=== PATIENT | male | born 1950 | race Caucasian/White ===

== ENCOUNTER 2019-12-03 05:53 | Day surgery (SDC) | payer MEDICARE, BC ==
[~2019-12-03] VITALS: Ht 170.2 cm; Wt 118.4 kg
[~2019-12-03 05:53] MED LIST: ASPI325; ASPI81CH PO; Hair, Skin & N1 EACH PO; LOSARTAN-HCTZ1 EACH PO; LOSHYD PO; METO100ER; MOTRIN PO; Neurontin 100100 MG PO; Toprol Xl50 MG PO
--- NOTE | 2019-12-03 14:49 | NUR ---
SHIFT SUMMARY PT A&OX4, VSS, S/P R TOBIN, SURGICAL DRESSINGS CDI, POLAR YOUSUF ON. DENIES PAIN AT THIS TIME. DENIES N&V, DIGNA REG DIET. PHYSICAL THERAPY EVAL'D; PT AMBULATED W/FWW & GB TO BRP/HALLWAY, UP TO CHAIR, DENIES N&T IN ALL EXT'S. VOIDING WELL. FAMILY AT BEDSIDE. WILL REPORT TO NEXT RN.
--- NOTE | 2019-12-03 18:27 | NUR ---
SHIFT SUMMARY PT HAS DONE VERY WELL POST OP. WORKED WITH THERAPY. PAIN WELL CONTROLLED WITH JUST TORADOL; DECLINES TYLENOL. EATING, DRINKING, & VOIDING EASILY. NO DRAINAGE NOTED TO DRSGS. AMBULATING IN HALLWAYS.
[2019-12-04 04:10] LABS: BASOPHILS ABSOLUTE AUTO 0.01 K/mm3 (0.00-0.23); BASOPHILS PERCENT AUTO 0 % (0-2); EOSINOPHILS PERCENT AUTO 0 % (0-6); Hematocrit 30.4 % (37.0-53.0); Hemoglobin 9.4 g/dL (13.5-17.5); IMMATURE GRAN ABSOLUTE AUTO 0.06 K/mm3 (0.00-0.10); IMMATURE GRAN PERCENT AUTO 1 % (0-1); LYMPHOCYTES ABSOLUTE AUTO 1.01 K/mm3 (0.84-5.20); LYMPHOCYTES PERCENT AUTO 9 % (21-46); MONOCYTES ABSOLUTE AUTO 1.12 K/mm3 (0.16-1.47); MONOCYTES PERCENT AUTO 10 % (4-13); Mean Corpuscular HGB 26.5 pg (26.0-34.0); Mean Corpuscular HGB Conc 30.9 g/dL (31.5-36.5); Mean Corpuscular Volume 86 fL (80-100); Mean Platelet Volume 9.1 fL (9.1-12.4); NEUTROPHILS ABSOLUTE AUTO 9.09 K/mm3 (1.96-9.15); NEUTROPHILS PERCENT AUTO 81 % (41-73); Platelet Count 517 K/mm3 (150-400); RDW Coefficient Variation 14.1 % (11.7-14.2); RDW Standard Deviation 44.2 fL (35.1-46.3); Red Blood Cell Count 3.55 M/mm3 (4.30-5.90); White Blood Cell Count 11.29 K/mm3 (4.00-11.30)
[2019-12-04 04:32] LABS: Anion Gap 7 mmol/L (6-16); Blood Urea Nitrogen 24 mg/dL (8-24); Bun/Creatinine Ratio 26.1 (12.0-20.0); CO2, Blood 27 mmol/L (21-32); Calcium, Blood 8.3 mg/dL (8.5-10.1); Chloride, Blood 103 mmol/L (98-108); Creatinine, Blood 0.92 mg/dL (0.60-1.20); Glomerular Filtration Rate >60 (60-); Glucose, Blood 120 mg/dL (70-99); Magnesium, Blood 2.2 mg/dL (1.6-2.4); Potassium, Blood 3.7 mmol/L (3.5-5.5); Sodium, Blood 137 mmol/L (136-145)
--- NOTE | 2019-12-04 04:56 | NUR ---
SHIFT SUMMARY: ANNE-MARIE IS POD1 FOR A R TOBIN. A&OX4. VSS, NO ACUTE EVENTS OVERNIGHT. IV TO LEFT HAND PATENT. HE STATES THAT HE IS EXPERIENCING DISCOMFORT ONLY, NO PAIN. GARCIA MCCORMICK, SCDs, AND SANDRO YOUSUF IN PLACE. TOLERATING PO INTAKE WELL. HE IS AMBULATING WITH A ONE PERSON STANDBY ASSIST W/FWW. HE USES HIS CALL LIGHT APPROPRIATELY. DRESSINGS X 2 TO R HIP C/D&I. HE IS SITTING UP IN THE RECLINER WITH HIS CALL LIGHT IN REACH. WILL REPORT TO DAY SHIFT RN.
--- NOTE | 2019-12-04 07:47 | NUR ---
DR ANGELO HERE RECENTLY TO SEE PT.
--- NOTE | 2019-12-04 08:57 | NUR ---
therapy here to see pt, family present.
--- NOTE | 2019-12-04 09:12 | NUR ---
MEDICATIONS CLARIFIED THIS AM, REPORTS TO GIVE LOVENOX AND ASPIRIN THIS AM.
[2019-12-04] MEDS ORDERED: ENOX40I SC (12:01)
[2019-12-04] MEDS ORDERED: OXYC5 PO (12:02)
[2019-12-04] MEDS ORDERED: SULTRIDS PO (12:04)
[2019-12-04] MEDS ORDERED: PROM25 PO (12:04)
--- NOTE | 2019-12-04 12:14 | NUR ---
DISCHARGE: PT EATING AND DRINKING, VOIDING, PASSING GAS. PT REPORTS PAIN CONTROLLED ON PO PAIN MEDICATION. PT BEEN CLEARED BY THERAPY TO GO HOME. PT IV OUT WNL. PT HAS WALKER PRESENT. PT/FAMILY REPORTS UNDERSTANDING OF DISCHARGE INSTRUCTIONS INCLUDING MEDICATIONS, ICE MACHINE, DRESSING CHANGES. PT SENT WITH DRESSING SUPPLIES, ICE MACHINE, AND BELONGINGS. PT ALSO SENT WITH PT'S WALKER.
== END 2019-12-04 12:35 | disposition home or self-care (01) ==
LOC: ORSCMMR 05:53 → ORD 07:30 → SURS 11:51 → ORSCMMR 12-04 12:35
PROVIDERS: Orthopaedic Surgery
PROC: 8E0YXBZ Computer Assisted Procedure of Lower Extremity (ICD-10-PCS; principal; 2019-12-03 07:30)
PROC: 0SR90JA Replacement of Right Hip Joint with Synthetic Substitute, Uncemented, Open Approach (ICD-10-PCS; principal; 2019-12-03 07:30)
DX: M16.11 Unilateral primary osteoarthritis, right hip (principal); I10 Essential (primary) hypertension; G47.33 Obstructive sleep apnea (adult) (pediatric); Z87.891 Personal history of nicotine dependence; Z79.899 Other long term (current) drug therapy; E66.01 Morbid (severe) obesity due to excess calories; Z68.41 Body mass index [BMI] 40.0-44.9, adult
CPT/HCPCS: 36415; 72170; 80048; 83735; 85025; 88300; 97110; 97116; 97162; 97165; 97530; 97535; A9270; A9270-GY; C1713; C1776; J0171; J0735; J1100; J1650; J1885; J2250; J2370; J2405; J2704; J2795; J3010; J3370; J7120

== ENCOUNTER 2020-12-30 23:03 | Emergency (ER) | payer MEDICARE, BC ==
[~2020-12-30] VITALS: Ht 177.8 cm; Wt 108.9 kg
[~2020-12-30 23:03] MED LIST changes: +ENOX40I SC; +OXYC5 PO; +PROM25 PO; +SULTRIDS PO
[2020-12-31 00:06] LABS: BASOPHILS ABSOLUTE AUTO 0.04 K/mm3 (0.00-0.23); BASOPHILS PERCENT AUTO 1 % (0-2); EOSINOPHILS ABSOLUTE AUTO 0.12 K/mm3 (0.00-0.68); EOSINOPHILS PERCENT AUTO 2 % (0-6); Hematocrit 42.3 % (37.0-53.0); IMMATURE GRAN ABSOLUTE AUTO 0.02 K/mm3 (0.00-0.10); IMMATURE GRAN PERCENT AUTO 0 % (0-1); LYMPHOCYTES ABSOLUTE AUTO 1.67 K/mm3 (0.84-5.20); LYMPHOCYTES PERCENT AUTO 26 % (21-46); MONOCYTES ABSOLUTE AUTO 0.64 K/mm3 (0.16-1.47); MONOCYTES PERCENT AUTO 10 % (4-13); Mean Corpuscular HGB 29.2 pg (26.0-34.0); Mean Corpuscular HGB Conc 33.1 g/dL (31.5-36.5); Mean Corpuscular Volume 88 fL (80-100); Mean Platelet Volume 9.5 fL (9.1-12.4); NEUTROPHILS ABSOLUTE AUTO 3.88 K/mm3 (1.96-9.15); NEUTROPHILS PERCENT AUTO 61 % (41-73); Platelet Count 300 K/mm3 (150-400); RDW Coefficient Variation 13.3 % (11.7-14.2); RDW Standard Deviation 43.3 fL (35.1-46.3); White Blood Cell Count 6.37 K/mm3 (4.00-11.30)
[2020-12-31 00:25] LABS: Alanine Aminotransfer (ALT/SGP 34 U/L (12-78); Albumin, Blood 3.6 g/dL (3.4-5.0); Albumin/Globulin Ratio 0.8 (0.8-1.8); Alk Phos 81 U/L (50-136); Anion Gap 6 mmol/L (6-16); Aspartate Aminotrans (AST/SGOT 27 U/L (12-37); Bilirubin, Total 0.4 mg/dL (0.1-1.0); Blood Urea Nitrogen 22 mg/dL (8-24); CO2, Blood 29 mmol/L (21-32); Calcium, Blood 9.1 mg/dL (8.5-10.1); Chloride, Blood 105 mmol/L (98-108); Globulin, Blood 4.3 g/dL (2.2-4.0); Glomerular Filtration Rate >60 (60-); Glucose, Blood 153 mg/dL (70-99); Potassium, Blood 3.9 mmol/L (3.5-5.5); Sodium, Blood 140 mmol/L (136-145); Total Protein, Blood 7.9 g/dL (6.4-8.2)
[2020-12-31] MEDS ORDERED: OMEP20ER PO ×2 (00:41→00:43)
[2020-12-31] MEDS ORDERED: SUCR1 PO ×2 (00:41→00:43)
== END 2020-12-31 00:55 | disposition home or self-care (01) ==
LOC: ER 23:03
PROVIDERS: Student in an Organized Health Care Education/Training Program
DX: R10.13 Epigastric pain (principal); T39.015A Adverse effect of aspirin, initial encounter; Z88.0 Allergy status to penicillin; Z79.899 Other long term (current) drug therapy; Z79.82 Long term (current) use of aspirin; I10 Essential (primary) hypertension; M10.9 Gout, unspecified; Z87.891 Personal history of nicotine dependence
CPT/HCPCS: 36415; 80053; 83690; 85025; 99283; A9270

== ENCOUNTER 2023-12-24 08:59 | Day surgery (SDC) | payer MEDICARE, BC ==
[2023-12-24] VITALS (20 sets, daily range): BP systolic 79–146; BP diastolic 49–89
[~2023-12-24] VITALS: Ht 170.2 cm; Wt 108.5 kg
[~2023-12-24 08:59] MED LIST changes: +OMEP20ER PO; +SUCR1 PO
[2023-12-24] MEDS ORDERED: Acetaminophen 500 MG Tab PO SCH ×2 (09:10→16:00)
[2023-12-24] MEDS ORDERED: Chlorhexidine Mouth Care 15 ML UDC MT SCH (09:10)
[2023-12-24] MEDS ORDERED: CeFAZolin Sodium 2,000 MG in NS 100 ML IV SCH ×2 (09:10→18:00)
[2023-12-24] MEDS ORDERED: Lactated Ringer's 1,000 ML IV SCH ×2 (09:10→10:25)
[2023-12-24] MEDS ORDERED: Ropivacaine 0.5% HCl/Pf 123.125 MG,EPINEPHrine HCL 0.25 MG,Ketorolac Tromethamine 15 MG... INFIL SCH (09:10)
[2023-12-24] MEDS ORDERED: OxyCODONE HCL 10 MG TABCR PO SCH (09:10)
[2023-12-24] MEDS ORDERED: Tranexamic Acid 100 ML IV SCH (09:10)
--- NOTE | 2023-12-24 09:47 | NUR ---
History, Chart, Medications and Allergies reviewed before start of procedure. Lungs clear T/O to Auscultation. Patient confirms NPO status and agrees with scheduled surgery. Pre-Op teaching done. Pt verbalizes understanding. Patient reports completing Chlorhexadine shower X2 prior to admission to hospital.
[2023-12-24] MEDS ORDERED: DiphenhydrAMINE HCL 25 MG Cap PO PRN (10:10)
[2023-12-24] MEDS ORDERED: Promethazine HCl 25 MG Tab PO PRN (10:15)
[2023-12-24] MEDS ORDERED: Metoclopramide HCl 5MG / ML 2ML Vial IV PRN (10:15)
[2023-12-24] MEDS ORDERED: Prochlorperazine Edisylate 10 mg Vial IV PRN (10:15)
[2023-12-24] MEDS ORDERED: Bisacodyl 10 MG Supp PR PRN (10:15)
[2023-12-24] MEDS ORDERED: HYDROmorphone HCl/Pf 1MG SYR IV PRN (10:20)
[2023-12-24] MEDS ORDERED: FLU VACC TS2024-25(6MOS UP)/PF 45 MCG/0.5 ML SYRINGE IM SCH (10:20)
[2023-12-24] MEDS ORDERED: Ondansetron HCl 2 MG / ML 2ML Vial IV PRN (10:20)
[2023-12-24] MEDS ORDERED: OxyCODONE HCL 5 MG TAB PO PRN ×2 (10:20)
[2023-12-24] MEDS ORDERED: Midazolam HCl 1MG / ML 2ML Vial ONE (10:21)
[2023-12-24] MEDS ORDERED: propofoL 100 ML IV ONE (10:22)
[2023-12-24] MEDS ORDERED: Magnesium Hydroxide Conc 10 ML UDC PO PRN (10:25)
[2023-12-24] MEDS ORDERED: propofoL 50 ML IV ONE (11:37)
[2023-12-24] MEDS ORDERED: Phenylephrine HCl 10mg/ml 1 ml Vial ONE (12:07)
[2023-12-24] MEDS ORDERED: Albumin (Human) 12.5gm/250ml 250 ML IV ONE (12:56)
[2023-12-24] MEDS ORDERED: ePHEDrine Sulfate 50 MG/ML 1ML Injection ONE (12:56)
--- NOTE | 2023-12-24 14:04 | NUR ---
PT ARRIVED TO THE ROOM AT APPROXIMATELY 1340. PT ALERT/ORIENTED UPON ARRIVAL. PT REPORTS DECREASED SENSATION TO BLE R/T SPINAL ANESTHESIA, HE HAS WEAK MOVEMENT OF BLE AT THIS TIME. SPINAL SITE WNL. PT TOLERATING CLEAR LIQUIDS. HE DENIES PAIN. BP SLIGHTLY LOW BUT PT ASYMPTOMATIC, OTHER VSS. CALL LIGHT PLACED WITHIN REACH AND PT WAS EDUCATED TO USE. HE WAS PROVIDED WITH A MEAL MENU AND EDUCATED REGARDING ORDERING. FAMILY AT BEDSIDE FOR SUPPORT.
[2023-12-24] MEDS ORDERED: Ketorolac Tromethamine 15mg Vial IV SCH (18:00)
--- NOTE | 2023-12-24 19:31 | NUR ---
SHIFT SUMMARY PT IS POD#0 FROM L TOBIN WITH DR. STARKS. PAIN MANAGED WITH OXY AND TYLENOL. BP LOW POST-OP BUT PT ASYMPTOMATIC. PT WAS ABLE TO AMBULATE INTO THE BATHROOM. PT TOLERATING PO. PT WAS ABLE TO VOID. BSR GIVEN TO CHHAYA CUBA.
[2023-12-24] MEDS ORDERED: Docusate Sodium 100 MG Cap PO SCH (21:00)
[2023-12-25 03:31] VITALS: BP 112/63
--- NOTE | 2023-12-25 04:06 | NUR ---
SHIFT SUMMARY POD1 L TOBIN. SENSATION AND CIRCULATION REMAIN INTACT. PRINEO IS C/D/I. VSS, PT HAD HYPOTENTION ON PREVIOUS SHIFT. THIS HAS NOT BEEN OBSERVED T/O MY SHIFT. PT SLEPT ON AND OFF T/O THE NIGHT. AMBULATING TO THE BATHROOM W/ SBA. VOIDING W/O DIFFICULTY. PAIN MANAGED WELL W/ 10 MG OXY. OVERALL, NO ACUTE EVENTS NOTED. PLAN FOR PHYSICAL THERAPY AND D/C HOME TODAY. THE PATIENT IS CURRENTLY RESTING, IN NO DISTRESS, CALL LIGHT IN REACH
[2023-12-25 05:57] LABS: BASOPHILS ABSOLUTE AUTO 0.02 K/mm3 (0.00-0.23); BASOPHILS PERCENT AUTO 0 % (0-2); EOSINOPHILS PERCENT AUTO 1 % (0-6); Hematocrit 34.2 % (37.0-53.0); Hemoglobin 11.4 g/dL (13.5-17.5); IMMATURE GRAN ABSOLUTE AUTO 0.02 K/mm3 (0.00-0.10); IMMATURE GRAN PERCENT AUTO 0 % (0-1); LYMPHOCYTES ABSOLUTE AUTO 0.99 K/mm3 (0.84-5.20); LYMPHOCYTES PERCENT AUTO 13 % (21-46); MONOCYTES ABSOLUTE AUTO 0.89 K/mm3 (0.16-1.47); MONOCYTES PERCENT AUTO 12 % (4-13); Mean Corpuscular HGB 30.5 pg (26.0-34.0); Mean Corpuscular HGB Conc 33.3 g/dL (31.5-36.5); Mean Corpuscular Volume 91 fL (80-100); Mean Platelet Volume 9.8 fL (9.1-12.4); NEUTROPHILS ABSOLUTE AUTO 5.47 K/mm3 (1.96-9.15); NEUTROPHILS PERCENT AUTO 73 % (41-73); Platelet Count 276 K/mm3 (150-400); RDW Coefficient Variation 13.6 % (11.7-14.2); RDW Standard Deviation 46.2 fL (35.1-46.3); Red Blood Cell Count 3.74 M/mm3 (4.30-5.90); White Blood Cell Count 7.49 K/mm3 (4.00-11.30)
[2023-12-25 06:17] LABS: Bun/Creatinine Ratio 34.9 (12.0-20.0); Calcium, Blood 8.2 mg/dL (8.5-10.1); Creatinine, Blood 0.74 mg/dL (0.60-1.20); Magnesium, Blood 1.9 mg/dL (1.6-2.4); Potassium, Blood 3.4 mmol/L (3.5-5.5)
[2023-12-25 07:56] VITALS: BP 101/78
[2023-12-25] MEDS ORDERED: IBUP400 PO (08:58)
[2023-12-25] MEDS ORDERED: ACET500 PO (08:59)
[2023-12-25] MEDS ORDERED: Aspirin 81 MG Chew PO SCH (09:00)
[2023-12-25] MEDS ORDERED: Losartan/HCTZ 50-12.5 TAB PO SCH (09:00)
[2023-12-25] MEDS ORDERED: Metoprolol Succinate 50 MG TABCR PO SCH (09:00)
[2023-12-25] MEDS ORDERED: OXYC5 PO (09:00)
--- NOTE | 2023-12-25 09:46 | NUR ---
MORNING NOTE ASSUMED CARE AT APPROX 0715. PATIENT ALERT AND ORIENTED X4. COMMUNICATES NEEDS EFFECTIVELY. POD 1 R TOBIN - PRINEO DRESSING C/D/I. PAIN TOLERABLE WITH ORDERED MEDICATION. COOLING DEVICE IN PLACE. AMBULATING WITH 1P FWW GB. AWAITING PHYSICAL THERAPY EVAL. TOLERATING PO INTAKE. CALL LIGHT IN REACH. CURRENTLY SITTING IN RECLINER CHAIR. AT BEDSIDE.
--- NOTE | 2023-12-25 10:37 | NUR ---
DISCHARGE NOTE PATIENT CLEARED BY PHYSICAL THERAPY FOR DISCHARGE. NO ACUTE CHANGES SINCE PREVIOUS DOCUMENTATION. VSS. DRESSING TO L HIP REMAINS C/D/I. PAIN TOLERABLE WITH PRESCRIBED MEDICATION, COOLING DEVICE. DEVICE WITH PATIENT AT DISCHARGE. PRESENT AT BEDSIDE DURING THERAPY AND DISCHARGE EDUCATION - BOTH PATIENT AND RECEPTIVE TO EDUCATION, ASKS QUESTIONS PRN TO GAIN FURTHER UNDERSTANDING. IV REMOVED. PERSONAL BELONGINGS WITH PATIENT. PATIENT TRANSFERRED TO PERSONAL VEHICLE VIA WHEELCHAIR AT APPROX 1035.
== END 2023-12-25 10:40 | disposition home or self-care (01) ==
LOC: ORD 08:59 → ORSCMMR 08:59 → ORD 10:30 → SURS 13:39 → ORD 12-25 10:40
PROVIDERS: Orthopaedic Surgery
PROC: 0SRB0JA Replacement of Left Hip Joint with Synthetic Substitute, Uncemented, Open Approach (ICD-10-PCS; principal; 2023-12-24 10:30)
DX: M16.12 Unilateral primary osteoarthritis, left hip (principal); M86.651 Other chronic osteomyelitis, right thigh; I10 Essential (primary) hypertension; Z79.82 Long term (current) use of aspirin; Z79.899 Other long term (current) drug therapy; E66.9 Obesity, unspecified; Z68.38 Body mass index [BMI] 38.0-38.9, adult; Z96.641 Presence of right artificial hip joint
CPT/HCPCS: 36415; 72170; 80048; 83735; 85025; 97110; 97116; 97162; A9270; C1776; J0171; J0690; J0735; J0780; J1885; J2250; J2371; J2704; J2795; J7120; P9045

== ENCOUNTER → 2024-05-14 | Outpatient (CLI) | payer MEDICARE, BC ==
[~2024-05-14] MED LIST changes: +ACET500 PO; +IBUP400 PO
== END ==
LOC: LAB 08:46 → LAB SHORT 08:46
DX: C44.712 Basal cell carcinoma of skin of right lower limb, including hip (principal); L98.9 Disorder of the skin and subcutaneous tissue, unspecified
CPT/HCPCS: 88305